=== PATIENT | female | born 1945 | race Hispanic/Latino ===

== ENCOUNTER 2017-06-20 20:58 | Emergency (ER) | payer MEDICARE ==
[2017-06-20 21:40] VITALS: BP 140/68
[2017-06-20] MEDS ORDERED: ASPIRIN PO ONE (21:48)
[2017-06-20 22:39] LABS: Basophils # (Auto) 0.1 K/mm3 (0.0-0.1); Basophils % (Auto) 0.4 % (0.0-1.8); Eosinophils % (Auto) 0.3 % (0.0-4.3); Hematocrit 40.7 % (30.3-42.9); Hemoglobin 13.9 gm/dl (10.1-14.3); Lymphocytes # (Auto) 1.3 K/mm3 (1.2-5.4); Lymphocytes % (Auto) 9.2 % (13.4-35.0); Mean Corpuscular HGB Conc 34 % (30-34); Mean Corpuscular Hemoglobin 29 pg (28-32); Mean Corpuscular Volume 85 fl (79-97); Monocytes # (Auto) 0.3 K/mm3 (0.0-0.8); Monocytes % (Auto) 1.7 % (0.0-7.3); Platelet Count 228 K/mm3 (140-440); Red Blood Count 4.78 M/mm3 (3.65-5.03); Red Cell Distribution Width 13.9 % (13.2-15.2)
[2017-06-20 22:44] LABS: BUN/Creatinine Ratio 23; Blood Urea Nitrogen 18 mg/dL (7-17); Calcium 8.9 mg/dL (8.4-10.2); Hemolysis Index 9
[2017-06-20 23:22] LABS: INR 0.89 (0.87-1.13)
[2017-06-20 23:23] LABS: Partial Thromboplastin Time 24.7 Sec. (24.2-36.6)
--- NOTE | 2017-06-20 23:27 | Emergency Department Report ---
ED Chest Pain HPI - General Chief Complaint: Chest Pain Stated Complaint: CHEST PAIN Time Seen by Provider: 06/20/17 22:07 Source: patient, EMS, old records reviewed (not availble on [employer]) Mode of arrival: Stretcher Limitations: No Limitations - History of Present Illness Initial Comments: 71-year-old female with a past medical history of CAD placement March 2015 and hypertension presents to the hospital complaints of episode of abdominal pain, nausea vomiting, and chest pain. Patient thinks that symptoms started after eating the hamburger meat. She had hamburger has been frozen for 1-2 months and thinks she put too much pepper. Other family members has some mild abdominal symptoms as well. Patient had cramping abdominal pain followed by episodes of nausea and vomiting. She then started to have pain across her chest described as a "gnawing pain". She denies diaphoresis or shortness of breath. She receives aspirin 325 mg and nitroglycerin spray with improvement in pain. Patient has not had a cardiac cath or stress test and stent placement in 2016. Patient is now asymptomatic and prefers to go home. Professional Organizer Dr. Mehta affiliated with [facility] - Related Data Allergies Allergy/AdvReac Type Severity Reaction Status Date / Time cephalexin [From Keflex] AdvReac Unknown Verified 06/20/17 22:21 fluoxetine [From Prozac] AdvReac Unknown Verified 06/20/17 22:21 glipizide [From Glucotrol] AdvReac Unknown Verified 06/20/17 22:21 ticagrelor [From Brilinta] AdvReac Unknown Verified 06/20/17 22:21 Heart Score - HEART Score History: Moderately suspicious EKG: Non-specific Age: > 65 Risk factors: > 3 risk factors or hx of atherosclerotic disease Troponin: < normal limit HEART Score: 6 ED Review of Systems ROS: Stated complaint: CHEST PAIN Other details as noted in HPI ED Past Medical Hx - Past Medical History Previous Medical History?: Yes Hx Hypertension: Yes Hx Heart Attack/AMI: Yes (2 previous with the last CO Mar 2015) Additional medical history: HTN dx unknown - Surgical History Hx Coronary Stent: Yes (mar 2015) - Social History Smoking Status: Never Smoker Substance Use Type: None ED Physical Exam - General Limitations: No Limitations ED Course Vital Signs 06/20/17 06/20/17 06/20/17 20:58 21:02 21:16 Pulse Rate 73 70 71 Respiratory 16 Rate Blood Pressure 140/68 140/68 O2 Sat by Pulse 96 98 Oximetry 06/20/17 06/20/17 06/20/17 21:30 21:41 21:46 Pulse Rate 72 73 74 Respiratory 19 14 Rate Blood Pressure 140/68 140/68 O2 Sat by Pulse 96 97 Oximetry 06/20/17 06/20/17 06/20/17 22:00 22:27 22:31 Pulse Rate 74 74 76 Respiratory 13 14 12 Rate Blood Pressure 140/68 140/68 140/68 O2 Sat by Pulse 97 98 98 Oximetry 06/20/17 06/20/17 22:45 23:01 Pulse Rate 82 85 Respiratory 17 19 Rate Blood Pressure 140/68 140/68 O2 Sat by Pulse 98 96 Oximetry - Reevaluation(s) Reevaluation #1: 06/20/17 23:31 Patient asymptomatic - Consultations Consultation #1: 06/20/17 23:[address] Nunn on-call buffing and polishing wheel repairer for Dr. Mehta. He agrees the patient should be admitted for stress test in the a.m. if patient opts to not stay in AMA advised him to call the office in the a.m. AMBER score - Amber Score Age > 65: (0) No Aspirin use within the Past 7 Days: (1) Yes 3 or more CAD Risk Factors: (1) Yes 2 or more Angina events in past 24 hrs: (0) No Known CAD with more than 50% Stenosis: (0) No Elevated Cardiac Markers: (0) No ST Deviation Greater than 0.5mm: (0) No AMBER Score: 2 ED Medical Decision Making - Lab Data Result diagrams: 06/20/17 21:58 06/20/17 21:58 Lab Results 06/20/17 06/20/17 06/20/17 Range/Units 21:58 21:58 22:55 WBC 14.6 H (4.5-11.0) K/mm3 RBC 4.78 (3.65-5.03) M/mm3 Hgb 13.9 (10.1-14.3) gm/dl Hct 40.7 (30.3-42.9) % MCV 85 (79-97) fl MCH 29 (28-32) pg MCHC 34 (30-34) % RDW 13.9 (13.2-15.2) % Plt Count 228 (140-440) K/mm3 Lymph % (Auto) 9.2 L (13.4-35.0) % [place] % (Auto) 1.7 (0.0-7.3) % Eos % (Auto) 0.3 (0.0-4.3) % Baso % (Auto) 0.4 (0.0-1.8) % Lymph # 1.3 (1.2-5.4) K/mm3 [place] # 0.3 (0.0-0.8) K/mm3 Eos # 0.0 (0.0-0.4) K/mm3 Baso # 0.1 (0.0-0.1) K/mm3 Seg Neutrophils % 88.4 H (40.0-70.0) % Seg Neutrophils # 12.9 H (1.8-7.7) K/mm3 PT 12.5 (12.2-14.9) Sec. INR 0.89 (0.87-1.13) APTT 24.7 (24.2-36.6) Sec. Sodium 138 (137-145) mmol/L Potassium 3.5 L (3.6-5.0) mmol/L Chloride 99.3 (98-107) mmol/L Carbon Dioxide 23 (22-30) mmol/L Anion Gap 19 mmol/L BUN 18 H (7-17) mg/dL Creatinine 0.8 (0.7-1.2) mg/dL Estimated GFR > 60 ml/min BUN/Creatinine Ratio 23 % Glucose 240 H (65-100) mg/dL Calcium 8.9 (8.4-10.2) mg/dL Troponin T < 0.010 (0.00-0.029) ng/mL - EKG Data -: EKG Interpreted by Me EKG shows normal: sinus rhythm (72), axis (qrs -45), QRS complexes (qrsd 86), ST -T waves (no stemi/t inv) - EKG Data When compared to previous EKG there are: previous EKG unavailable - Radiology Data Radiology results: image reviewed (cxr: naf, read by me) - Medical Decision Making Patient informed that both myself and the buffing and polishing wheel repairer recommended admission for this stress test in the a.m. I expressed to patient for concern about her chest pain and although her initial troponin is negative we have not been able to complete our cardiac evaluation to rule out underlying heart disease and possible impending heart attack. Despite this patient still desires to sign out AGAINST MEDICAL ADVICE. Her family members also present during this decision. Patient informed to return to the ER immediately if symptoms recur and to call the cardiology office in the morning for further evaluation - Differential Diagnosis CO, GERD, unstable angina, gastritis, food poisoning Critical Care Time: No Critical care attestation.: If time is entered above; I have spent that time in minutes in the direct care of this critically ill patient, excluding procedure time. ED Disposition Clinical Impression: Chest pain Disposition: [id number] LEFT AGAINST MED ADVICE Is pt being admited?: No Does the pt Need Aspirin: No Condition: Stable Instructions: Chest Pain (ED) Additional Instructions: We have been unable to complete your heart evaluation in the ED. Therefore we are unable to rule out impending heart attack which could lead to and disability. Both the cardiologists and the ER physician have recommended admission. You are signing out AGAINST MEDICAL ADVICE. Please return immediately to the hospital if symptoms worsen as indicated by your discharge instructions. Call your buffing and polishing wheel repairer's office in the morning to schedule follow -up and reevaluation Referrals: JESSICA NUNN MD [Staff Physician] - 06/21/17 (Follow up with Dr Mehta/ buffing and polishing wheel repairer.) Forms: AMA Form Time of Disposition: 23:33
--- NOTE | 2017-06-20 23:32 | XRay Report ---
FINAL REPORT PROCEDURE: XR CHEST 1V AP TECHNIQUE: Chest radiograph anteroposterior view. CPT 66628 HISTORY: cp COMPARISON: No prior studies are available for comparison. FINDINGS: Heart: Mild enlargement. Mediastinum/Vessels: Aorta is calcified and tortuous. Central vascular prominence. Lungs/Pleural space: Normal. Bony thorax: No acute osseous abnormality. Degenerative change. Life support devices: Monitoring devices. IMPRESSION: Mild cardiac enlargement. Central vascular congestion. No focal infiltrate.
== END 2017-06-20 23:50 | disposition left against medical advice (07) ==
LOC: ED 20:58
DX: R07.89 Other chest pain (principal); R10.9 Unspecified abdominal pain; R11.2 Nausea with vomiting, unspecified; I10 Essential (primary) hypertension; I25.2 Old myocardial infarction; I25.10 Atherosclerotic heart disease of native coronary artery without angina pectoris; Z95.818 Presence of other cardiac implants and grafts; Z88.1 Allergy status to other antibiotic agents; Z88.8 Allergy status to other drugs, medicaments and biological substances
CPT/HCPCS: 36415; 71045; 80048; 84484; 85025; 85610; 85730; 93005; 93010